=== PATIENT | female | born 1995 | race American Indian/Alaskan Native ===

== ENCOUNTER 2017-09-09 00:20 | Inpatient (IN) | payer OTHER ==
[2017-09-09] MEDS ORDERED: EMLA TP PRN (01:32)
[2017-09-09] MEDS ORDERED: REGLAN IV ONE (01:32)
[2017-09-09] MEDS ORDERED: BICITRA PO ONE (01:32)
[2017-09-09] MEDS ORDERED: PEPCID IV ONE (01:32)
--- NOTE | 2017-09-09 01:37 | History and Physical Report ---
History of Present Illness Date of examination: 09/09/17 Chief complaint: Breech Presentation History of present illness: 22-year-old at 41 weeks presents with above complaint, she is a [facility] patient [place]. Patient diagnosed as breech presentation on 09/07/2017, she started fazal this afternoon and decided not to come to the ED earlier as she felt she was not in labor. Negative care has been unremarkable per patient He is currently 3 cm dilated and fazal Past History Past Medical History: no pertinent history Past Surgical History: no surgical history [employer] History: denies: chlamydia, gonorrhea, hepatitis B, hepatitis C, herpes, HIV , syphilis Social history: , full code. denies: smoking, IV drug use - Obstetrical History Expected Date of Delivery: 09/01/17 Actual Gestation: 41 Week(s) 1 Day(s) : 1 Para: 0 Medications and Allergies Allergies Allergy/AdvReac Type Severity Reaction Status Date / Time No Known Allergies Allergy Unverified 09/09/17 00:36 Review of Systems Constitutional: no fever, no chills, no sweats, no fatigue, no weakness, no chronic headaches, no chronic pain Eyes: no blurred vision, no diplopia, no photophobia, no blind spots Cardiovascular: no chest pain, no orthopnea, no syncope, no lightheadedness, no shortness of breath, no dyspnea on exertion, no claudication, no high blood pressure, no decreased exercise tolerance Respiratory: no cough, no cough with sputum, no shortness of breath, no dyspnea on exertion, no congestion Gastrointestinal: no abdominal pain, no nausea, no vomiting Genitourinary: contractions, no vaginal bleeding, no vaginal discharge, no leakage of fluid, no dysuria - Physical Exam Cardiovascular: Regular rate, Normal S1, Normal S2 Lungs: Positive: Clear to auscultation Abdomen: Positive: normal appearance, soft. Negative: distention, tenderness, guarding, rigidity Uterus: Positive: enlarged (EFW ~ 3800) Adnexa: both: normal Extremities: Positive: normal - Obstetrical FHR: category 1 Cervical Dilatation: 3 (Per RN) Results All other labs normal. Assessment and Plan A: 2-year-old at 41+1 weeks in breech presentation presents in active labor -Cat 1 tracing P: -Routine labs -She has been consented -Proceed to the OR once available for primary - Patient Problems (1) 41 weeks gestation of Current Visit: Yes Status: Acute (2) Breech presentation Current Visit: Yes Status: Acute (3) Uterine contractions Current Visit: Yes Status: Acute
[2017-09-09] MEDS ORDERED: LACTATED RINGERS 1,000 ML IV SCH (02:00)
[2017-09-09] MEDS ORDERED: PITOCin/NS 20 UNIT/1000ML DRIP 20 UNITS/1,000 ML BAG IV SCH ×2 (02:00→05:00)
[2017-09-09] MEDS ORDERED: ANCEF/STERILE WATER 2 GM/20 ML 2 GM/20 ML SYRINGE IV NR (02:00)
[2017-09-09 02:06] LABS: Basophils % (Auto) 0.1 % (0.0-1.8); Eosinophils % (Auto) 0.4 % (0.0-4.3); Hematocrit 36.1 % (30.3-42.9); Hemoglobin 12.2 gm/dl (10.1-14.3); Lymphocytes # (Auto) 2.6 K/mm3 (1.2-5.4); Lymphocytes % (Auto) 20.2 % (13.4-35.0); Mean Corpuscular HGB Conc 34 % (30-34); Mean Corpuscular Hemoglobin 27 pg (28-32); Mean Corpuscular Volume 80 fl (79-97); Monocytes # (Auto) 0.9 K/mm3 (0.0-0.8); Monocytes % (Auto) 6.9 % (0.0-7.3); Platelet Count 162 K/mm3 (140-440); Red Blood Count 4.51 M/mm3 (3.65-5.03); Red Cell Distribution Width 17.1 % (13.2-15.2)
[2017-09-09] MEDS ORDERED: ANCEF IV ONE (02:36)
[2017-09-09] MEDS ORDERED: ASTRAMORPH PF 10MG/10ML ONE (02:40)
[2017-09-09] MEDS ORDERED: ZOFRAN ONE (03:09)
[2017-09-09] MEDS ORDERED: WATER FOR IRRIG STERILE IR ONE (03:20)
[2017-09-09] MEDS ORDERED: NACL 0.9% IR ONE (03:20)
[2017-09-09] MEDS ORDERED: XYLOCAINE MPF 2% ONE (03:54)
[2017-09-09] MEDS ORDERED: NARCAN 0.4 MG/1 ML IV PRN ×2 (04:14→04:30)
[2017-09-09] MEDS ORDERED: SENOKOT PO PRN (04:14)
[2017-09-09] MEDS ORDERED: TUCKS PAD TP PRN (04:14)
[2017-09-09] MEDS ORDERED: TORADOL IV PRN (04:14)
[2017-09-09] MEDS ORDERED: LANSINOH TP PRN (04:14)
[2017-09-09] MEDS ORDERED: ANUCORT-HC PR PRN (04:14)
[2017-09-09] MEDS ORDERED: MYLICON PO PRN (04:14)
[2017-09-09] MEDS ORDERED: MILK OF MAGNESIA PO PRN (04:14)
[2017-09-09] MEDS ORDERED: ZOFRAN IV PRN ×2 (04:14→04:30)
[2017-09-09] MEDS ORDERED: TYLENOL PO PRN (04:14)
--- NOTE | 2017-09-09 04:14 | Operative Report ---
Operative Report Operative Report: DATE: 09/09/2017 PREOPERATIVE DIAGNOSIS: 22-year-old at 41 weeks, breech presentation POSTOP DIAGNOSIS: As above NAME OF PROCEDURE: Primary low transverse section SURGEON: TROY BLOCK MD PACKAGE LINER: [place] ANESTHESIA: Spinal EBL: 500 mL PATHOLOGY SPECIMEN: None URINE OUTPUT: 200 mL FINDINGS: Male infant in complete breech presentation, time of is 3:29 AM , weight 7 lbs. 9 oz. or 3417 g, Apgars are 8 and 9, normal uterus tubes and ovaries bilaterally DESCRIPTION OF PROCEDURE: After informed consent, patient was taken to the operating room where she was prepped and draped in a sterile fashion. Pfannestial incision was performed 2 cm above the pubic symphysis. This was then carried down to the underlying rectus fascia which was scored in the midline. The fascial incision was extended laterally with the use of Ramirez scissors, anterior leaf was then grasped with [place]'s elevated dissected sharply and bluntly off the underlying rectus. In a similar fashion the inferior leaf was grasped elevated dissected sharply and bluntly off the underlying rectus. The rectus was in the midline and the peritoneal cavity was entered without difficulty. After good visualization of the bladder the peritoneal layer was extended up and down; bladder blade was placed in the patient's pelvic cavity, bladder flap was created without difficulty. A hysterotomy incision was then performed with clear amniotic fluid noted. in cephalic presentation was delivered without difficulty in the usual manner; cord was clamped cut and was handed over to waiting NICU staff. The placenta was then delivered intact, the uterus was then exteriorized cleared of all clots and debris. Her hysterotomy incision was then closed in a running locked fashion with 0 Vicryl on a CTX; using the same suture were able to imbricate the initial layer. The uterus was then returned to the patient's pelvic cavity; the peritoneal edges were grasped with hemostats and [place]'s; irrigation was used to clear the gutters of all clots and debris. Tisseel hemostatic agent was applied copiously over the hysterotomy incision. The peritoneal layer was closed in a running fashion with 3-0 Vicryl; the rectus was reapproximated with a single [id number] stitch. The fascia was then closed in a running fashion with 0 Vicryl; the subcutaneous layer was reapproximated with a single [id number] stitch. The skin was then closed in a subcuticular manner with 4-0 Monocryl. She tolerated the procedure well lap and instrument counts were correct 2, she did receive 2 grams of Ancef prior to the procedure. She is transferred to PACU in stable condition.
--- NOTE | 2017-09-09 04:29 | Anesthesia Day of Surgery ---
Anesthesia Day of Surgery - Day of Surgery Patient Examined: Yes Patient H&P Reviewed: Yes Patient is NPO: Yes
--- NOTE | 2017-09-09 04:29 | Anesthesia Consultation ---
Anesthesia Consult and Med Hx Date of service: 09/09/17 - Airway Anesthetic Teeth Evaluation: Good ROM Head & Neck: Adequate Mental/Hyoid Distance: Adequate Mallampati Class: Class I Intubation Access Assessment: Good - Pulmonary Exam CTA: Yes - Cardiac Exam Cardiac Exam: RRR - Pre-Operative Health Status ASA Pre-Surgery Classification: ASA2, Emergency Proposed Anesthetic Plan: Epidural, Spinal - Pulmonary Hx Asthma: No - Cardiovascular System Hx Hypertension: No - Central Nervous System Hx Seizures: No Hx Psychiatric Problems: No - Endocrine Hx Renal Disease: No Hx Hypothyroidism: No Hx Hyperthyroidism: No - Hematic Hx Anemia: No Hx Sickle Cell Disease: No - Other Systems Hx Alcohol Use: No
[2017-09-09] MEDS ORDERED: PHENERGAN PO PRN (04:30)
[2017-09-09] MEDS ORDERED: DILAUDID IV PRN ×2 (04:30)
[2017-09-09] MEDS ORDERED: PHENERGAN PR PRN (04:30)
[2017-09-09] MEDS ORDERED: SODIUM CHLORIDE FLUSH SYRINGE 10 ML IV PRN (05:00)
[2017-09-09] MEDS ORDERED: fentaNYL-BUPIV 2 MCG/ML-0.125% 200 MCG/100 ML BAG EPIDURAL SCH (05:00)
[2017-09-09] MEDS ORDERED: D5LR 1,000 ML IV SCH (05:00)
[2017-09-09] MEDS ORDERED: SODIUM CHLORIDE FLUSH SYRINGE 10 ML IV NR (05:00)
--- NOTE | 2017-09-09 07:47 | Post Anesthesia Evaluation ---
- Post Anesthesia Evaluation Patient Participated: Yes Airway Patent: Yes Stable Respiratory Function: Yes Nausea/Vomiting: Yes (in operating room. none in PACU) Temp > 96.8F: Yes Pain Manageable: Yes Adequeate Hydration: Yes Anesthesia Complications: No Block Receding Appropriately: Yes Patient on Ventilator: No
[2017-09-09] MEDS: PERCOCET 5/325 PO PRN ×2 (13:17→23:19)
[2017-09-09] MEDS ORDERED: NEO SYNEPHRINE/NS Syringe(OR USE) IV ONE (16:00)
[2017-09-09] MEDS ORDERED: TORADOL ONE (16:00)
[2017-09-09] MEDS: MOTRIN PO PRN (16:40)
[2017-09-09 18:05] LABS: Hematocrit 35.6 % (30.3-42.9); Hemoglobin 11.8 gm/dl (10.1-14.3)
[2017-09-09] MEDS ORDERED: TRIPLE ANTIBIOTIC TP SCH (20:00)
[2017-09-10] MEDS ORDERED: M-M-R II VACCINE SUB-Q ONE (04:15)
[2017-09-10] MEDS: MOTRIN PO PRN ×3 (05:19→21:47)
[2017-09-10] MEDS ORDERED: BOOSTRIX IM ONE (06:00)
--- NOTE | 2017-09-10 09:08 | Progress Note ---
Assessment and Plan - Patient Problems (1) S/P primary low transverse Current Visit: Yes Status: Acute Plan to address problem: POD 2 - stable Continue routine postop orders Discharge to home 09/11/17 F/U @ [facility] 2 weeks for incision check Subjective - Subjective Date of service: 09/10/17 Principal diagnosis: s/p Primary LTCS Patient reports: appetite normal, voiding normally, pain well controlled, flatus , ambulating normally, no bowel movement : doing well, bottle feeding Objective - Vital Signs Latest vital signs: Vital Signs Temp Pulse Resp BP BP Pulse Ox 09/10/17 07:55 98.0 F 76 18 97/54 99 09/10/17 00:00 98.2 F 69 18 108/50 09/09/17 16:40 20 09/09/17 16:10 98.9 F 86 18 114/54 09/09/17 13:20 98.9 F 73 20 117/52 09/09/17 13:17 20 Intake and Output 09/09/17 09/10/17 09/10/17 23:59 07:59 15:59 Intake Total 540 Output Total 900 Balance -360 Intake: Oral 540 Output: Urine 900 Indwelling Catheter 900 Other: Total, Intake Amount 120 Total, Output Amount 900 # Voids Void 0 - Exam Cardiovascular: Present: Regular rate, Normal S1, Normal S2, No murmurs Lungs: Present: Clear to auscultation, Normal air movement Abdomen: Present: normal appearance, soft Uterus: Present: normal, firm, fundal height below umbilicus Extremities: Present: normal Deep Tendon Reflex Grade: Normal +2 Incision: Present: normal, dry, dressed
[2017-09-10] MEDS: PRENATAL VITAMIN PO SCH (11:22)
[2017-09-10] MEDS: FEOSOL PO SCH (11:22)
[2017-09-10] MEDS: PERCOCET 5/325 PO PRN ×2 (16:36→23:13)
[2017-09-11] MEDS: MOTRIN PO PRN (03:50)
[2017-09-11 05:28] VITALS: BP 106/51
[2017-09-11] MEDS: FEOSOL PO SCH (10:12)
[2017-09-11] MEDS: PRENATAL VITAMIN PO SCH (10:12)
--- NOTE | 2017-09-11 10:25 | Progress Note ---
Assessment and Plan A: POD#@ S/P P c/s Stable P: Routine PP/PO care Discharge home today F/U 1 week at [facility] for incision check Subjective - Subjective Date of service: 09/11/17 Principal diagnosis: s/p Primary LTCS Patient reports: appetite normal, voiding normally, pain well controlled, flatus , bowel movement, ambulating normally [place]: doing well, bottle feeding Objective - Vital Signs Latest vital signs: Vital Signs Temp Pulse Resp BP BP Pulse Ox 09/11/17 00:30 98.5 F 59 L 20 106/51 09/10/17 16:14 97.3 F L 86 18 118/62 100 Intake and Output 09/10/17 09/11/17 09/11/17 23:59 07:59 15:59 Intake Total 240 420 Balance 240 420 Intake: Intake, Free Water 240 420 Other: # Voids Void 1 1 - Exam Breasts: Present: normal Cardiovascular: Present: Regular rate, Normal S1, Normal S2 Abdomen: Present: normal appearance, soft, normal bowel sounds. Absent: distention Vulva: both: normal Uterus: Present: firm, fundal height below umbilicus (-1) Extremities: Present: normal Deep Tendon Reflex Grade: Normal +2 Incision: Present: normal (LTI, CDI, Steri strips intact, no drainage), dry, intact
--- NOTE | 2017-09-11 10:28 | Discharge Summary ---
Providers - Providers Date of Admission: 09/09/17 01:47 Date of discharge: 09/11/17 Attending physician: SANDRO JAMESON MD Primary care physician: SANDRO JAMESON MD Hospitalization Reason for admission: active labor, IUP at term, other (Breech presentation) Delivery: Procedure: primary low transverse Procedure details: See operative note Episiotomy: none Laceration: none Incision: normal (LTI, CDI, Steri strips intact, no drainage), dry, intact complications: none Discharge diagnosis: IUP at term delivered baby: male Condition at discharge: Good Disposition: DC- TO HOME OR SELFCARE Plan - Discharge Medications Prescriptions: Ibuprofen [Motrin 600 MG tab] 600 mg PO Q8H PRN #30 tablet PRN Reason: Pain Multivitamin with Iron [Multivitamins with Iron] 1 each PO DAILY #30 tablet oxyCODONE /ACETAMINOPHEN [Percocet 5/325] 1 tab PO Q6HR PRN #30 tablet PRN Reason: Pain - Provider Discharge Summary Activity: routine, no sex for 6 weeks, no heavy lifting 4 weeks, no strenuous exercise Diet: routine Instructions: routine Additional instructions: [] Smoking cessation referral if applicable(refer to patient education folder for contact #) [] Refer to [facility] Booklet Call your doctor immediately for: * Fever > 100.5 * Heavy vaginal bleeding ( >1 pad per hour) * Severe persistent headache * Shortness of breath * Reddened, hot, painful area to leg or breast * Drainage or odor from incision. * Keep incision clean and dry at all times and follow doctor's instructions regarding bathing/showering - Follow up plan Follow up: SANDRO JAMESON MD [Primary Care Provider] - 7 Days
== END 2017-09-11 14:45 | disposition home or self-care (01) | DRG 766 ==
LOC: TRG 00:20 → APU 01:47 → OB 06:21
PROVIDERS: ADMIT Obstetrics & Gynecology; ATTEND Obstetrics & Gynecology
PROC: 10D00Z1 Extraction of Products of Conception, Low, Open Approach (ICD-10-PCS; principal; 2017-09-09)
DX: O32.1XX0 Maternal care for breech presentation, not applicable or unspecified (principal); O62.9 Abnormality of forces of labor, unspecified; Z3A.41 41 weeks gestation of pregnancy; Z37.0 Single live birth
CPT/HCPCS: 36415; 85014; 85018; 85025; 86850; 86900; 86901; 99211; A6250; C9250; G0463; J0690; J1885; J2274; J2370; J2405; J2590; J2765; J7120; J7121; Q0169